=== PATIENT | male | born 1975 | race Caucasian/White ===

== ENCOUNTER 2018-02-06 18:23 | Inpatient (IN) | payer BC, OTHER ==
[~2018-02-06] VITALS: Ht 180.3 cm; Wt 127.0 kg
--- NOTE | 2018-02-06 21:15 | NUR ---
Intake Assessment Assessment done at intake office. Pt still noted to be mildly intoxicated from ETOH. Patient is alert & oriented x4, ambulatory with a steady gait. Speech is soft, clear and audible. Patient appears with anxious mood. He is pleasant, cooperative and able to answer questions appropriately. Vitals taken immediately B/P 114/69, HI 90, RR 16, Temp 96.5, O2Sat 98%. He reports that he is here to detox off ETOH. Pt is coherent and is able to sign consent & respond to questions appropriately. Explained to pt unit protocols such as Q4H Vitals signs check. Pt did not brought any home medications with him. Will continue admission process when pt arrives in the unit.
--- NOTE | 2018-02-06 21:26 | NUR ---
ADMISSION NOTE: Patient is a 42 y.o male admitted at [facility] Unit at approximately 2128 pm of 02/06/18 for medically supervised withdrawal from ETOH use. Body search done and skin check performed. Skin noted to be intact. He is 511 tall and weighs 280 lbs in a standing scale. Pt is cooperative during assessment. Patient is oriented to floor unit and room. Patient follows a regular diet with no known food and drug allergies. Pt wishes to be full Code. Pt still noted to be mildly intoxicated from ETOH. Labs were drawn and urine for drug screen was provided. Alcohol level is 0.17%. Patient is alert & oriented x4, ambulatory with a steady gait. Speech is soft, clear and audible. Patient appears with anxious mood. He is pleasant, cooperative and able to answer questions appropriately. Skin noted to be warm and dry. Complains of mild headache d/t lack of sleep for 2 days per patient. Pt denies any hallucinations. No Shortness of breath noted. Respiration even & unlabored. Abdomen soft & non-distended. Denies N/V/D. Last BM noted today 02/06/18. Hes PCP is Dr. Doshi but he dont see him that much. He usually see for his gastric sleeve. He denies having a psychologist or psychiatrist. Pt reported medical hx such as GERD after having the gastric sleeve a year ago, surgical hx such as: Right rotator cuff Sx (2 yrs ago), Left Ankle Sx, Tonsillectomy, and my right hearing was repaired. He reports taking home medication such as Simvastatin, Multivitamins and Omeprazole. Patient did not bring his medications and does not know the doses. He also reports drinking weed tea for sleep and last use was Saturday02/04/18. Patient states current substance use: 1. Alcohol (Beer) - Pt started drinking when he was 20 years old. Per pt, he started on an intermittent binge drinking after he had the gastric sleeve a year ago. Pt drinks 12 cans of 12 oz beer at a time up to 2 days the most. Then he will sometimes go up to 3 months without drinking. Pt denies drinking on a daily basis. His last drink was today 02/06/18 and he drank 4 cans of 12 oz beer at around 5pm today. Pt has never been to a detox treatment. Pt stated that he decided to come to treatment because My gave me an ultimatum so I could stop drinking. He stated that hes drinking is affecting his relationship with his . Pt stated, I go see a therapist every week to help me with my drinking but I dont think its helping me, my therapist Umer Gonzalez recommended me to come here so I can get help. Per pt, Ever since I had that gastric sleeve surgery I could not eat that much anymore like I used to, thats why my eating habits turned into drinking. He stated, my absorption is much faster now so everytime I drink I usually passed out and could not remember anything when I wake up and I want it to stop. Educated patient about plan of care including detox, group therapy, individual therapy, and discharge planning. Encouraged patient to verbalized feelings. Safety precautions are in place. Bed locked in lowest position. Both side rails padded & up. Call light within pt's reach. Will continue to monitor.
[2018-02-06] MEDS ORDERED: HYDROXYZINE PAMOATE 25 MG CAPSULE PO PRN (22:30)
[2018-02-06] MEDS ORDERED: LORAZEPAM 2 MG/1 ML VIAL IM PRN (22:30)
[2018-02-06] MEDS ORDERED: MAGNESIUM HYDROXIDE 30 ML LIQUID UDC PO PRN (22:30)
[2018-02-06] MEDS ORDERED: CLONIDINE HCL 0.1 MG TABLET PO PRN (22:30)
[2018-02-06] MEDS ORDERED: MAG HYDROX/AL HYDROX/SIMETH 30 ML LIQUID UDC PO PRN (22:30)
[2018-02-06] MEDS ORDERED: LORAZEPAM 1 MG TABLET PO PRN ×2 (22:30)
[2018-02-06] MEDS ORDERED: LOPERAMIDE HCL 2 MG CAPSULE PO PRN ×2 (22:30)
[2018-02-06] MEDS ORDERED: ONDANSETRON ODT 4 MG TAB.RAPDIS SL PRN (22:30)
[2018-02-06] MEDS ORDERED: ACETAMINOPHEN 325 MG TABLET PO PRN (22:30)
[2018-02-06] MEDS ORDERED: diphenhydrAMINE 50 MG CAPSULE PO PRN (22:30)
[2018-02-06] MEDS ORDERED: THIAMINE HCL 200 MG/2 ML VIAL IM ONE (22:30)
[2018-02-06 22:50] LABS: BASOPHILS # (AUTO) 0.1 K/uL (0.0-8.0); BASOPHILS % (AUTO) 0.9 % (0.0-2.0); EOSINOPHILS # (AUTO) 0.2 K/uL (0.0-0.7); EOSINOPHILS % (AUTO) 2.2 % (0.0-7.0); HEMATOCRIT 45.7 % (36.7-47.1); HEMOGLOBIN 16.3 g/dL (12.5-16.3); LYMPHOCYTES # (AUTO) 2.8 K/uL (20.0-40.0); MEAN CORPUSCULAR HEMOGLOBIN 30.1 uug (23.8-33.4); MEAN CORPUSCULAR HGB CONC 36 g/dL (32.5-36.3); MEAN CORPUSCULAR VOLUME 84.7 fL (73.0-96.2); MONOCYTES # (AUTO) 0.6 K/uL (2.0-10.0); MONOCYTES % (AUTO) 8.2 % (0.0-11.0); NEUTROPHILS # (AUTO) 3.7 K/uL (1.8-8.9); NEUTROPHILS % (AUTO) 50.7 % (38.5-71.5); PLATELET COUNT (AUTO) 343 K/uL (152-348); WHITE BLOOD COUNT (AUTO) 7.3 K/uL (3.6-10.2)
[2018-02-06] MEDS: IBUPROFEN 600 MG TABLET PO PRN (22:54)
[2018-02-06 22:56] LABS: BILIRUBIN,TOTAL 0.5 mg/dL (0.2-1.0); MAGNESIUM 1.9 mg/dL (1.8-2.4); POTASSIUM 3.5 mmol/L (3.5-5.1); TOTAL PROTEIN, SERUM 8.2 g/dL (6.4-8.2)
[2018-02-06 22:59] LABS: *AMPHETAMINE, URINE NEGATIVE (NEGATIVE); *BARBITURATE, URINE NEGATIVE (NEGATIVE); *CANNABINOID, URINE NEGATIVE (NEGATIVE); *COCCAINE, URINE NEGATIVE (NEGATIVE); *OPIATE, URINE NEGATIVE (NEGATIVE); *PHENCYCLIDINE SCREEN,URINE NEGATIVE (NEGATIVE)
[2018-02-06] MEDS ORDERED: TRAZODONE 50 MG TABLET PO ONE (23:00)
--- NOTE | 2018-02-06 23:05 | NUR ---
PRN Maalox & Motrin Patient complained of heartburn and mild headache. PRN Maalox and Motrin administered as ordered. Will monitor for effectiveness of medication.
[2018-02-06] MEDS ORDERED: SIMV10TA6 PO (23:08)
[2018-02-06] MEDS ORDERED: OMEP10CA4 PO (23:08)
[2018-02-06 23:31] LABS: THYROID STIMULATING HORMONE 1.257 mIU/mL (0.358-3.740)
[2018-02-07] VITALS: BP 115/78
--- NOTE | 2018-02-07 00:05 | NUR ---
PRN Reassessment Per patient PRn medication noted to be effective. Pt verbalized relief from headache and heartburn. will continue to monitor patient.
--- NOTE | 2018-02-07 03:56 | NUR ---
PRN Ativan Patient presented with anxiety, agitation, & mild headache. CIWA 7 noted at this time. PRN Ativan 1mg administered as ordered. Will continue to monitor patient.
[2018-02-07 04:00] VITALS: BP 129/80
--- NOTE | 2018-02-07 04:56 | NUR ---
PRN reassessment Patient asleep in bed and appears comfortable. Pt in bed with eyes close. No facial grimaicng noted. Unable to reassess CIWA at this time. Will continue to monitor patient.
--- NOTE | 2018-02-07 07:03 | NUR ---
End of Shift Note: Patient is a 42 y.o male admitted last night 02/06/18 for ETOH use. Pt presents with anxiety, agitation & mild headache. No N/V/D noted. Denies hallucinations. Pt has no taper yet. PRN medications available to manage symptoms of withdrawal. Pt received PRN Ativan, Maalox & Motrin and all were effective. Last CIWA 7. Pt remained stable and vitals noted WNL. All due medications given and all needs attended. Pt slept for a total of 5 hours. Fluid intake: 1047 ml. No void and no BM noted. Safety measures in place. Will endorse pt to day shift nurse.
--- NOTE | 2018-02-07 07:20 | NUR ---
Start Of Shift: patient is a 42 yr old male who was admitted to [facility] on 02/06/18 for a medically supervised withdrawal from ETOH ( beer). This is the patient's first time in treatment, he appears anxious and nervous, complains of slight headache, insomnia and decreased appetite. PRN Maalox , Motrin and Trazodone given on PM shift, his last CIWA was 7 and he slept for 5 hours. No taper has been set, MD will be in to evaluate patient, continue to offer support and encouragement.
[2018-02-07 08:00] VITALS: BP 134/83
--- NOTE | 2018-02-07 08:00 | NUR ---
CIWA 11 Patient presents with warm clammy skin, headache, decreased appetite and anxiety.
[2018-02-07] MEDS ORDERED: TUBERCULIN,PURIF.PROT.DERIV. 5 TU/0.1 ML TEST ID ONE (09:00)
[2018-02-07] MEDS: MULTIVITAMINS,THERAPEUTIC TABLET PO SCH (09:15)
[2018-02-07] MEDS: THIAMINE HCL 100 MG TABLET PO SCH (09:15)
[2018-02-07] MEDS: FOLIC ACID 1 MG TABLET PO SCH (09:15)
--- NOTE | 2018-02-07 09:16 | NUR ---
PPD place LFA
[2018-02-07] MEDS ORDERED: TRAZODONE 50 MG TABLET PO PRN (11:45)
[2018-02-07 12:00] VITALS: BP 146/95
[2018-02-07] MEDS: IBUPROFEN 600 MG TABLET PO PRN (12:04)
[2018-02-07] MEDS: PANTOPRAZOLE SODIUM 40 MG TABLET.DR PO SCH (12:04)
--- NOTE | 2018-02-07 12:05 | NUR ---
CIWA 11 Patient presents with warm clammy skin, headache, decreased appetite and anxiety. Motrin 600mg PO given for headache 09/26
--- NOTE | 2018-02-07 12:06 | NUR ---
PRN Motrin 600mg PO given for headache 510 will reassess
--- NOTE | 2018-02-07 13:05 | NUR ---
PRN Reassess Headache now 06/29, Motrin effective
[2018-02-07 16:00] VITALS: BP 125/85
--- NOTE | 2018-02-07 16:00 | NUR ---
WA 11 Patient presents with warm clammy skin, decreased appetite, restlessness, lethargy and anxiety. No PRN medications requested or required at this time
--- NOTE | 2018-02-07 19:13 | NUR ---
End Of Shift Patient is a 42 yr old male who was admitted to [facility] on 02/06/18 for a medically supervised withdrawal from ETOH ( Beer), he has not been placed on any taper but has PRN medications available. PRN Motrin was given for headache on this shift. He presents with increased anxiety, lethargy, restlessness and decreased appetite. He has attended groups today and is interacting appropriately with his peers. He had a fluid intake of 2500 ML, 5Voids and 0BM, his last CIWA was 11 @ 1600. Continue to follow MD plan of care and offer support and encouragement.
--- NOTE | 2018-02-07 20:00 | NUR ---
Start of Shift Received 42 year old male admitted to [facility] on 02/06/18 for medically supervised withdrawal from ETOH. Medical history GERD and gastric sleeve. PRN Motrin given during day shift. Pt awake, alert, and oriented. Last CIWA 11 @1600. Pt up participating in activities restless, anxious and worried affect. Continue with safety measures. Continue to monitor.
[2018-02-07 20:33] VITALS: BP 133/87
[2018-02-07] MEDS: TRAZODONE 100 MG TABLET PO PRN (22:38)
[2018-02-07] MEDS: SIMVASTATIN 10 MG TABLET PO SCH (22:38)
--- NOTE | 2018-02-07 22:40 | NUR ---
PRN Medication Reassessment Patient is noted in bed with his eyes closed. Breathing even and non labored. No signs of restlessness or discomfort noted. Patient received PRN Trazodone 100mg for inability of falling asleep with medication noted to be effective. Will continue to monitor. Addendum: 02/08/18 at 0216 by CARLA COFFEY LVN ENTERED IN ERROR
--- NOTE | 2018-02-07 22:40 | NUR ---
PRN Medication Administration patient is noted verbalizing inability of falling asleep. PRN Trazodone 100mg administered as per order. Will continue to monitor.
--- NOTE | 2018-02-07 23:40 | NUR ---
PRN Medication Reassessment Patient is noted in bed with his eyes closed. Breathing even and non labored. No signs of restlessness or discomfort noted. Patient received PRN Trazodone 100mg for inability of falling asleep with medication noted to be effective. Will continue to monitor.
[2018-02-08 00:25] VITALS: BP 121/81
--- NOTE | 2018-02-08 00:29 | NUR ---
COWS and CIWA Patient is noted in bed sleeping. Breathing even and non labored. no signs of restlessness or discomfort noted. CIWA and COWS not able to be completed as per order. Will continue to monitor. Addendum: 02/08/18 at 0644 by CARLA COFFEY LVN Correction: CIWA assessment not able to be completed. COWS Assessment not ordered.
[2018-02-08 04:30] VITALS: BP 128/83
--- NOTE | 2018-02-08 04:30 | NUR ---
CIWA Patient is noted in bed with eyes closed. Breathing even and non labored. No signs of restlessness or discomfort noted. CIWA not able to be completed as per order. Will continue to monitor.
[2018-02-08] MEDS: PANTOPRAZOLE SODIUM 40 MG TABLET.DR PO SCH (06:37)
--- NOTE | 2018-02-08 06:51 | NUR ---
End of Shift Endorsing care of 42 year old male admitted to [facility] on 02/06/18 for medically supervised withdrawal from ETOH. Medical history GERD and gastric sleeve. PRN Trazodone given this shift with positive effect. Pt lying in bed with eyes closed and resting. Respirations even and unlabored. Last CIWA 9 @1999 Continue with safety measures. PO intake of 1296ml, voided x 2, no BM, and slept 6.5 hours.
--- NOTE | 2018-02-08 07:30 | NUR ---
Start Of Shift: patient is a 42 yr old male who was admitted to [facility] on 02/06/18 for a medically supervised withdrawal from ETOH ( beer). He is currently only on PRN medications, PRN's given on PM shift : Trazodone 100mg PO, he slept for 5 hours ,last CIWA was 9. currently he walking around the unit and voices no concerns. continue to offer support and encouragement.
[2018-02-08 08:00] VITALS: BP 141/87
[2018-02-08] MEDS: IBUPROFEN 600 MG TABLET PO PRN (08:59)
[2018-02-08] MEDS: THIAMINE HCL 100 MG TABLET PO SCH (08:59)
[2018-02-08] MEDS: MULTIVITAMINS,THERAPEUTIC TABLET PO SCH (08:59)
[2018-02-08] MEDS: FOLIC ACID 1 MG TABLET PO SCH (08:59)
--- NOTE | 2018-02-08 09:00 | NUR ---
PRN Motrin 600mg PO given for headache 5/10
--- NOTE | 2018-02-08 09:00 | NUR ---
CIWA 11 Patient presents with warm clammy skin, headache, decreased appetite and anxiety. Motrin 600mg PO given for headache 09/26
--- NOTE | 2018-02-08 10:00 | NUR ---
PRN Reassess Patient states Motrin 600mg PO was effective, pain now 2/10
[2018-02-08 12:00] VITALS: BP 139/79
--- NOTE | 2018-02-08 12:00 | NUR ---
WA 10 Patients withdrawal symptoms presents as lethargy, anxiety and restlessness
[2018-02-08 13:06] LABS: HEPATITIS B SURFACE AG Negative (Negative)
[2018-02-08] MEDS ORDERED: TRAZ-214 PO (15:29)
[2018-02-08] MEDS ORDERED: SIMV10TA6 PO (15:29)
[2018-02-08] MEDS ORDERED: PANT40TA2 PO (15:29)
[2018-02-08 16:00] VITALS: BP 153/81
--- NOTE | 2018-02-08 16:00 | NUR ---
WA 10 Patients withdrawal symptoms presents as lethargy, anxiety and restlessness
--- NOTE | 2018-02-08 19:27 | NUR ---
End Of Shift Patient is a 42 yr old male who was admitted to [facility] on 02/06/18 for a medically supervised withdrawal from ETOH ( Beer), he has not been placed on any taper but has PRN medications available. PRN Motrin was given for headache on this shift. He presents with increased anxiety, lethargy, restlessness and decreased appetite. He has attended groups today and is interacting appropriately with his peers. He had a fluid intake of 2381 ML, 3 Voids and 0BM, his last CIWA was 10 @ 1600. Continue to follow MD plan of care and offer support and encouragement.
--- NOTE | 2018-02-08 19:32 | NUR ---
START OF SHIFT Patient is a 42-year-old male admitted on 02/06/18 for ETOH withdrawal. Patient was not placed on a taper upon admission and continues with PRN medications as needed. Patient is scheduled for discharge tomorrow. Per endorsement, patient's last CIWA was 10. Patient received PRN Motrin today, noted to be effective. Upon assessment, patient is alert and oriented x4, anxious and diaphoretic. Patient is verbalizing his concerns about marital issues, discharge, and the future. Patient also verbalizes being grateful for this experience here at [facility]. Patient complains of difficulty sleeping and states that he will ask for PRN sleep med later this evening. Patient is on fall and seizure precautions with no history of seizure. Safety measures in place, side rails up x2, bed locked in low position, call light within reach. Will continue to monitor.
[2018-02-08 20:00] VITALS: BP 118/87
--- NOTE | 2018-02-08 20:00 | NUR ---
CIWA 11 Patient is anxious, restless, diaphoretic, and verbalizing concern about the future. Current CIWA scored at 11.
[2018-02-08] MEDS: SIMVASTATIN 10 MG TABLET PO SCH (21:43)
[2018-02-08] MEDS: TRAZODONE 100 MG TABLET PO PRN (22:43)
--- NOTE | 2018-02-08 22:43 | NUR ---
PRN TRAZODONE Patient reports difficulty sleeping and requests aid. PRN Trazodone 100mg given PO. Safety measures in place, call light within reach. Will monitor for effectiveness.
--- NOTE | 2018-02-08 23:43 | NUR ---
PRN TRAZODONE REASSESSMENT Patient reports feeling only slightly tired at this time; PRN Trazodone mildly effective. Safety measures in place, call light within reach. Will continue to monitor.
[2018-02-09] VITALS: BP 112/76
--- NOTE | 2018-02-09 | NUR ---
CIWA 10 Patient still having difficulty sleeping, noted to be anxious and restless, going down to smoke often, diaphoretic on and off. Current CIWA is 10.
--- NOTE | 2018-02-09 04:00 | NUR ---
VITALS REFUSED, CIWA DEFERRED Patient refused 0400 vital signs. CIWA deferred at this time due to patient sleeping; to be assessed and scored while patient is awake. Respirations even and unlabored. Safety measures in place, side rails up x2, bed locked in low position, call light within reach. Will continue to monitor.
[2018-02-09] MEDS: PANTOPRAZOLE SODIUM 40 MG TABLET.DR PO SCH (07:03)
--- NOTE | 2018-02-09 07:05 | NUR ---
END OF SHIFT Patient is a 42-year-old male admitted on 02/06/18 for ETOH withdrawal. Patient was not placed on a taper at time of admission and has continued with PRN medications. Patient is scheduled for discharge today. Patient's last CIWA was 10. Patient received PRN Trazodone, which was mildly effective. Patient slept for 5 hours, total intake of 3,000mL, void x5, stool x0. Patient is on fall and seizure precautions with no history of seizure. Safety measures in place, side rails up x2, bed locked in low position, call light within reach. Will endorse to day shift.
[2018-02-09] MEDS: IBUPROFEN 600 MG TABLET PO PRN (07:13)
--- NOTE | 2018-02-09 07:13 | NUR ---
PRN MOTRIN Patient reports "sciatica pain" in his lower back "from the yoga yesterday." Patient reports 5/10 on pain scale. PRN Motrin 600mg given PO. Safety measures in place, call light within reach. Will endorse to day shift to reassess.
--- NOTE | 2018-02-09 07:30 | NUR ---
START OF SHIFT NOTE Received report from night nurse, 42 year old male admitted for ETOH withdrawal. Patient was not on any taper but PRN'S was available for s/s of withdrawal. Per endorsement patient was given PRN Trazodone effective per night nurse, slept for 5 hours, last CIWA was 10, patient set for discharge today. Received patient alert awake oriented x4. Breathing normal no SOB noted. Respiration even non labored. Skin intact warm and dry tot touch. Patient denies any SI/HI. All safety measures in place. Call light within reach. Will cont with plan of care.
[2018-02-09 08:00] VITALS: BP 131/79
[2018-02-09] MEDS: MULTIVITAMINS,THERAPEUTIC TABLET PO SCH (08:06)
[2018-02-09] MEDS: THIAMINE HCL 100 MG TABLET PO SCH (08:06)
[2018-02-09] MEDS: FOLIC ACID 1 MG TABLET PO SCH (08:06)
--- NOTE | 2018-02-09 08:15 | NUR ---
MOTRIN REASSESSMENT Per patient Motrin was effective pain lower to 2/10.
--- NOTE | 2018-02-09 09:40 | NUR ---
DISCHARGE NOTE Patient has been discharged from [facility] Patient is in Stable condition, VS WNL. Denies suicidal and homicidal ideations at this time. Skin intact warm and dry to touch. Patient denies any pain or discomfort. All documentation has been completed, paperwork signed and dated. Pt left with all of his belongings,prescriptions. Patient did not bring any medications from home. Pt has been discharged from [facility] on 02/09/18 at 0940. has been Notified.
== END 2018-02-09 09:40 | disposition other institution (70) | DRG 895 ==
LOC: SRC 20:36
PROVIDERS: ADMIT Family Medicine Addiction Medicine; ATTEND Family Medicine Addiction Medicine
PROC: HZ2ZZZZ Detoxification Services for Substance Abuse Treatment (ICD-10-PCS; principal; 2018-02-06)
PROC: HZ41ZZZ Group Counseling for Substance Abuse Treatment, Behavioral (ICD-10-PCS; 2018-02-07)
DX: F10.230 Alcohol dependence with withdrawal, uncomplicated (principal); Y90.0 Blood alcohol level of less than 20 mg/100 ml; K21.9 Gastro-esophageal reflux disease without esophagitis; E66.8 Other obesity; Z68.39 Body mass index [BMI] 39.0-39.9, adult; Z79.899 Other long term (current) drug therapy; F41.9 Anxiety disorder, unspecified; F12.10 Cannabis abuse, uncomplicated; F32.9 Major depressive disorder, single episode, unspecified
CPT/HCPCS: 36415; 70030-TC; 80307; 83690; 83735; 84443; 85025; 86580; 86592; 86705; 86803; 87340; 87806; A4663; G0480; J3411